=== PATIENT | male | born 1945 | race Caucasian/White ===

== ENCOUNTER → 2016-08-22 | Outpatient (CLI) | payer BC, MEDICARE ==
[2016-08-22 09:11] LABS: CHLORIDE,CL 107 mmol/L (98-110); SODIUM,NA 142 mmol/L (136-146)
== END ==
LOC: MW.CHFP 08:03
PROVIDERS: ATTEND Emergency Medicine
DX: Z00.00 Encounter for general adult medical examination without abnormal findings (principal); G40.909 Epilepsy, unspecified, not intractable, without status epilepticus; E78.5 Hyperlipidemia, unspecified
CPT/HCPCS: 36415; 80053; 80061; 80185; 85025

== ENCOUNTER 2020-05-06 12:23 | Emergency (ER) | payer OTHER, MEDICARE, BC ==
--- NOTE | 2020-05-06 12:40 | EDM.PDOC ---
ED HPI GENERAL MEDICAL PROBLEM - General Chief Complaint: Lower Extremity Injury/Pain Stated Complaint: HIP PAIN Time Seen by Provider: 05/06/20 12:24 Source of Information: Reports: Patient History Limitations: Reports: No Limitations - History of Present Illness INITIAL COMMENTS - FREE TEXT/NARRATIVE: HISTORY AND PHYSICAL: History of present illness: Patient is a 74-year-old male who presents to the emergency room with complaints of right lateral hip pain. He states while he was at work he had slipped and fallen onto his right hip as he was trying to walk between 2 pallets. States it was a mechanical fall. He denies hitting his head or having any loss of consciousness. Increased pain with weightbearing. He denies any other extremity involvement. Patient denies any fever, chills, headache, change in vision, syncope or near syncope. Denies any chest pain, back pain, shortness of breath or cough. Denies any abdominal pain, nausea, vomiting, diarrhea, constipation or dysuria. Has not noted any blood in urine or stool. Patient has been eating and drinking appropriately. Review of systems: As per history of present illness and below otherwise all systems reviewed and negative. Past medical history: As per history of present illness and as reviewed below otherwise noncontributory. Surgical history: As per history of present illness and as reviewed below otherwise noncontributory. Social history: See social history for further information Family history: As per history of present illness and as reviewed below otherwise noncontributory. Physical exam: General: Well developed and well nourished 74 year old male. Alert and orientated x 3. Nontoxic in appearance and in no acute distress. Vital signs are stable and have been reviewed by me. Nursing notes were reviewed. HEENT: Atraumatic, normocephalic, pupils equal and reactive bilaterally, negative for conjunctival pallor or scleral icterus, mucous membranes moist, trachea midline. No drooling or trismus noted. No meningeal signs. No hot potato voice noted. Lungs: Clear to auscultation, breath sounds equal bilaterally, chest nontender. Normal work of breathing, no accessory muscles used. Heart: S1S2, regular rate and rhythm without overt murmur Abdomen: Soft, nondistended, nontender. Negative for masses or costovertebral tenderness. Pelvis: Stable nontender. C-spine/Back: No pinpoint vertebral tenderness upon palpation. No crepitus, step-offs or obvious deformities. Patient is ambulatory into the emergency room without difficulty or deficit. Able to rock back on heels and walk on toes. Denies any urinary or fecal incontinence. Denies any numbness, tingling or saddle paresthesia. No concerns of serious infection, fracture or cord compression, or cauda equina syndrome. Deep tendon reflexes brisk bilaterally. Skin: Intact, warm, dry. No lesions or rashes noted. Hematologic: No petechiae or purpra. Mucosa appropriate color and normal nail bed color and refill. Extremities: Pain to palpation of the right lateral hip with bruising and soft tissue swelling noted. No internal or external rotation is noted. Otherwise he moves all other extremities per self without difficulty or deficits, negative for cords or calf pain. Neurovascular unremarkable. Neuro: Awake, alert, oriented. Cranial nerves II through XII unremarkable. Cerebellum unremarkable. Motor and sensory unremarkable throughout. Exam nonfocal. Psychiatric: Mood and affect are appropriate. Normal thought process. Answering questions appropriately. Notes: *This patient was seen and evaluated during the 2019 SARS-CoV-2 novel coronavirus pandemic period. Community viral transmission is ongoing at time of this encounter and the emergency department is operating under pandemic response procedures. Patient was undressed and his skin was thoroughly examined. He does have some soft tissue swelling and bruising of the right lateral hip. No internal or external rotation is noted. Pelvis is stable. We will get x-ray. I offered patient pain medication while waiting for imaging to be completed/read. He declined stating he feels pain-free while resting and not having to move or weight-bear. X-ray shows degenerative changes without visible acute fracture or destructive process. Crutches were offered for patient to be non-weight bearing, he declined stating he brought himself some from home. I have talked with the patient about today's findings, in addition to providing specific details for plan of care. Reassessment at the time of disposition demonstrates that the patient is in no acute distress. The patient is stable for discharge, counseling was provided and we discussed in great detail signs and symptoms that would prompt them to return to the Emergency Department. Medication, follow up and supportive care measures were reviewed and discussed. Voices understanding and is agreeable to plan of care. Denies any further questions or concerns at this time. Diagnostics: X-ray right hip with pelvis Therapeutics: Crutches Prescription: Dallas (#20) Impression: Fall Contusion right hip Injury right hip Plan: 1. Rest, ice, elevate the extremity as able. Use crutches to be no nweightbearing over the next few days. As we discussed, your x-ray today shows no acute fracture but if you have increased pain or are not improving as expected you should follow-up with the orthopedic provider to rule out a hidden fracture. 2. You can alternate Tylenol and ibuprofen as needed for pain and fever management. [place] for moderate to severe pain. This medication may cause drowsiness so do not take it while driving or needing to be functioning outside of the house 3. We encourage you to follow up with your primary care provider and/or recommended specialist in the next few days for re-evaluation and further care/management. 4. If your symptoms should worsen, new symptoms develop or any of the signs and symptoms we discussed should arise please return to the emergency room or call 911 (if needed). Definitive disposition and diagnosis as appropriate pending reevaluation and review of above. Right Hip Pain Score (Numeric/FACES): 9 - Related Data Allergies Allergy/AdvReac Type Severity Reaction Status Date / Time No Known Allergies Allergy Verified 05/06/20 12:58 Home Meds: Home Meds Aspirin [Giovany Chewable Aspirin] 81 mg PO DAILY 11/22/13 [History] Ascorbate Calcium [Vitamin C] 500 mg PO DAILY 12/03/18 [History] Calcium Carbonate [Calcium] 500 mg PO DAILY 12/03/18 [History] Cholecalciferol (Vitamin D3) [Vitamin D3] 2,000 unit PO DAILY 12/03/18 [History] Fish Oil/[place]-3 Fatty Acids [Fish Oil 1,000 MG] 1,000 mg PO DAILY 12/03/18 [History] Magnesium 200 mg PO DAILY 12/03/18 [History] Multivitamin [Daily Multiple Vitamin] 1 tab PO DAILY 12/03/18 [History] Nicotine Polacrilex [Nicotine Gum] 1 piece PO Q2H PRN 12/03/18 [History] Turmeric Root Extract [Turmeric Curcumin] 1 cap PO DAILY 12/03/18 [History] Vitamin B Complex 1 cap PO DAILY 12/03/18 [History] Acetaminophen/HYDROcodone [[place] 325-5 MG] 1 - 2 tab PO Q4H #20 tablet 05/06/20 [Rx] Past Medical History HEENT History: Reports: Other (See Below) Other HEENT History: has upper and lower dentures, hx of visual disturbances due to stroke- has resolved Respiratory History: Reports: Other (See Below) Other Respiratory History: smoker for 60 years Gastrointestinal History: Reports: Colon Polyp Neurological History: Reports: CVA, Head Trauma, Seizure Other Neuro History: had a stroke, fell and hit his head causing a subdural hematoma, had a seizure from the bleed- took antiseizure medication for a year Oncologic (Cancer) History: Reports: Basal Cell Carcinoma - Past Surgical History GI Surgical History: Reports: Colonoscopy, Hernia, Inguinal Musculoskeletal Surgical History: Reports: Arthroscopic Knee Other Oncologic Surgeries/Procedures: basal cell removed from right cheek Dermatological Surgical History: Reports: Skin Biopsy Review of Systems - Review of Systems Review Of Systems: Comprehensive ROS is negative, except as noted in HPI. ED EXAM, GENERAL - Physical Exam Exam: See Below (See dictation) Course - Vital Signs Last Recorded V/S: Last Vital Signs Temp 98.4 F 05/06/20 13:56 Pulse 98 05/06/20 13:56 Resp 16 05/06/20 13:56 BP 131/89 05/06/20 13:56 Pulse Ox 94 L 05/06/20 13:56 - Orders/Labs/Meds Orders: Active Orders 24 hr Category Date Time Status DME for Discharge [COMM] Stat Oth 05/06/20 13:43 Ordered Departure - Departure Time of Disposition: 13:50 Disposition: Home, Self-Care 01 Clinical Impression: Injury of hip, right Qualifiers: Encounter type: initial encounter Qualified Code(s): S79.911A - Unspecified injury of right hip, initial encounter Contusion Qualifiers: Encounter type: initial encounter Contusion area: hip Laterality: right Qualified Code(s): S70.01XA - Contusion of right hip, initial encounter Fall Qualifiers: Encounter type: initial encounter Qualified Code(s): W19.XXXA - Unspecified fall, initial encounter - Discharge Information Prescriptions: Acetaminophen/HYDROcodone [[place] 325-5 MG] 1 - 2 tab PO Q4H #20 tablet Instructions: Contusion Referrals: Dakota Gandhi MD [Primary Care Provider] - Forms: ED Department Discharge Additional Instructions: The following information is given to patients seen in the emergency department who are being discharged to home. This information is to outline your options for follow-up care. We provide all patients seen in our emergency department with a follow-up referral. The need for follow-up, as well as the timing and circumstances, are variable depending upon the specifics of your emergency department visit. If you don't have a primary care physician on staff, we will provide you with a referral. We always advise you to contact your personal physician following an emergency department visit to inform them of the circumstance of the visit and for follow-up with them and/or the need for any referrals to a consulting specialist. The emergency department will also refer you to a specialist when appropriate. This referral assures that you have the opportunity for follow-up care with a specialist. All of these measure are taken in an effort to provide you with optimal care, which includes your follow-up. Under all circumstances we always encourage you to contact your private physician who remains a resource for coordinating your care. When calling for follow-up care, please make the office aware that this follow-up is from your recent emergency room visit. If for any reason you are refused follow-up, please contact the [facility] Emergency Department at and asked to speak to the emergency department charge nurse. [facility] [address] [place] [id number] [address] Thank you for choosing the [facility] emergency department in [place] for your medical needs today. It was a pleasure caring for you. Today you were seen in the emergency department for hip pain. 1. Rest, ice, elevate the extremity as able. Use crutches to be nonweightbearing over the next few days. As we discussed, your x-ray today shows no acute fracture but if you have increased pain or are not improving as expected you should follow-up with the orthopedic provider to rule out a hidden fracture. 2. You can alternate Tylenol and ibuprofen as needed for pain and fever man agement. [place] for moderate to severe pain. This medication may cause drowsiness so do not take it while driving or needing to be functioning outside of the house 3. We encourage you to follow up with your primary care provider and/or recommended specialist in the next few days for re-evaluation and further care/management. 4. If your symptoms should worsen, new symptoms develop or any of the signs and symptoms we discussed should arise please return to the emergency room or call 911 (if needed). Sepsis Event Note (ED) - Focused Exam Vital Signs: Vital Signs Temp Pulse Resp BP Pulse Ox 05/06/20 13:56 98.4 F 98 16 131/89 94 L 05/06/20 12:59 98.6 F 102 H 17 137/83 97 - My Orders Last 24 Hours: My Active Orders 05/06/20 13:43 DME for Discharge [COMM] Stat - Assessment/Plan Last 24 Hours: My Active Orders 05/06/20 13:43 DME for Discharge [COMM] Stat
--- NOTE | 2020-05-06 13:39 | CR ---
Indication: Trauma. Pain. Technique: An AP view of the pelvis was acquired as well as AP and lateral views of the right hip Comparison: None Findings: Bone mineral density is globally decreased. There are degenerative changes of the visible lower lumbar spine. Atherosclerotic vascular calcifications are identified. No visible acute fracture, dislocation or destructive process. Moderate osteoarthritis involving both hip joints. Impression: Degenerative changes without visible acute fracture or destructive process. Dictated by Navid Dowd MD @ May 06 2020 1:36PM Signed by Dr. Navid Dowd @ May 06 2020 1:38PM
[2020-05-06 13:56] VITALS: BP 131/89; PULSE 98
== END 2020-05-06 13:59 | disposition home or self-care (01) ==
LOC: MW.ED 12:23
DX: S70.01XA Contusion of right hip, initial encounter (principal); W01.0XXA Fall on same level from slipping, tripping and stumbling without subsequent striking against object, initial encounter
CPT/HCPCS: 73502-26-RT; 73502-RT; 99283

== ENCOUNTER 2021-12-30 07:13 | Day surgery (SDC) | payer BC, MEDICARE ==
[~2021-12-30 07:13] MED LIST: Lactated Ringers 1,000 ML IV SCH; Sodium Chloride 0.9% 10 ML Syringe FLUSH PRN; Sodium Chloride 0.9% 2.5 ML Syringe FLUSH PRN; Sodium Chloride 0.9% 20 ML SDV IV PRN
[2021-12-30] MEDS ORDERED: Propofol 200 MG/20 ML SDV ONE ×2 (07:15→09:16)
[2021-12-30] MEDS ORDERED: Glycopyrrolate 0.2 MG/ML SDV ONE (09:07)
[2021-12-30 11:24] VITALS: BP 137/77; PULSE 79
== END 2021-12-30 10:38 | disposition home or self-care (01) ==
LOC: MW.SDS 07:13
PROVIDERS: ATTEND Surgery
DX: Z12.11 Encounter for screening for malignant neoplasm of colon (principal); D12.3 Benign neoplasm of transverse colon; D12.2 Benign neoplasm of ascending colon; D12.5 Benign neoplasm of sigmoid colon; K62.1 Rectal polyp; F17.210 Nicotine dependence, cigarettes, uncomplicated; E78.5 Hyperlipidemia, unspecified; F51.04 Psychophysiologic insomnia; Z86.16 Personal history of COVID-19; Z79.82 Long term (current) use of aspirin; Z79.899 Other long term (current) drug therapy; Z86.010 Personal history of colon polyps; Z98.890 Other specified postprocedural states
CPT/HCPCS: 45385; J2704; J3490; J7120; 00812; 99100

== ENCOUNTER 2025-01-16 07:49 | Day surgery (SDC) | payer MEDICARE, BC ==
[2025-01-16] MEDS: Lactated Ringers 1,000 ML IV SCH (08:10)
[2025-01-16] MEDS ORDERED: Propofol 200 MG/20 ML SDV ONE (08:47)
[2025-01-16 09:57] VITALS: BP 121/72; PULSE 71
== END 2025-01-16 10:20 | disposition home or self-care (01) ==
LOC: MW.SDS 07:49
PROVIDERS: ATTEND Surgery
DX: Z12.11 Encounter for screening for malignant neoplasm of colon (principal); D12.3 Benign neoplasm of transverse colon; D12.5 Benign neoplasm of sigmoid colon; F17.210 Nicotine dependence, cigarettes, uncomplicated; Z79.82 Long term (current) use of aspirin; Z86.16 Personal history of COVID-19; Z79.899 Other long term (current) drug therapy; Z86.0101 Personal history of adenomatous and serrated colon polyps
CPT/HCPCS: 45380; J2003; J2704; J7120; 00811; 99100